=== PATIENT | female | born 1955 | race Caucasian/White ===

== ENCOUNTER → 2020-04-04 | Day surgery (SDC) | payer MEDICARE ==
[~2020-04-04] MED LIST: Ketamine 200 MG/20 ML MDV ONE; Propofol 200 MG/20 ML SDV ONE; fentaNYL 100 MCG/2 ML SDV ONE
[2020-04-04] MEDS: Lactated Ringers 1,000 ML IV SCH (09:57)
--- NOTE | 2020-04-04 11:23 | OR ---
DATE OF OPERATION: 04/04/2020 PREOPERATIVE DIAGNOSIS: FAMILY HISTORY OF COLON CA. POSTOPERATIVE DIAGNOSIS: FAMILY HISTORY OF COLON CA. SURGEON: Xander Lares MD PROCEDURE: FULL-LENGTH COLONOSCOPY. ANESTHESIA: MAC. COMPLICATIONS: None. SPECIMEN: None. FINDINGS: 1. Full-length colonoscopy. 2. Sigmoid diverticulosis, mild to moderate. RECOMMENDATIONS: Followup colonoscopy every 5 years. INDICATIONS: The patient is overdue for colonoscopy. She has a family history of colon cancer. It has been 11 years since her last scope. DESCRIPTION OF PROCEDURE: The patient was prepped and draped. Placed in the left lateral decubitus position. A lubricated Olympus colonoscope was inserted and easily advanced to the cecum. Direct visualization of the ileocecal valve and appendiceal orifice was accomplished. The bowel prep was marginal. There was a lot of liquid stool throughout. Certainly, possible smaller lesions may have been missed. Upon withdrawal, throughout the entire length of the colon, I could see no obvious polyps, masses, ulceration, or bleeding sites. No vascular abnormalities or signs of colitis. The patient does have scattered diverticula in the sigmoid area, mild to moderate in severity at places. The rectal vault appeared benign. Retroflexion showed no perianal lesions. Air was suctioned. Scope removed without complication. LEELA/YISEL /[id number]
== END ==
LOC: CC.SDS 09:40
PROVIDERS: ATTEND Family Medicine
DX: Z12.11 Encounter for screening for malignant neoplasm of colon (principal); K57.30 Diverticulosis of large intestine without perforation or abscess without bleeding; I10 Essential (primary) hypertension; M10.9 Gout, unspecified; E78.5 Hyperlipidemia, unspecified; E55.9 Vitamin D deficiency, unspecified; M85.80 Other specified disorders of bone density and structure, unspecified site; Z01.812 Encounter for preprocedural laboratory examination; Z20.828 Contact with and (suspected) exposure to other viral communicable diseases; Z80.0 Family history of malignant neoplasm of digestive organs; Z88.0 Allergy status to penicillin; Z91.030 Bee allergy status; Z79.899 Other long term (current) drug therapy; Z79.82 Long term (current) use of aspirin; Z90.49 Acquired absence of other specified parts of digestive tract; Z98.890 Other specified postprocedural states
CPT/HCPCS: 00812; J2704; J3010; J7120